=== PATIENT | female | born 1975 | race Caucasian/White ===

== ENCOUNTER → 2016-10-03 | Outpatient (CLI) | payer BC ==
--- NOTE | 2016-10-10 08:26 | MM ---
Reason for exam: screening (asymptomatic). Last mammogram was performed 16 years ago. History: Retro-pectoral saline implants in both breasts, 2006. Excisional biopsy of the right breast. Physical Findings: A clinical breast exam by your physician is recommended on an annual basis and results should be correlated with mammographic findings. MG 3D Screen Mammo Imp/Cad Bilateral CC, MLO, and ID view(s) were taken. Prior study comparison: October 02, 2000, bilateral diagnostic mammogram. August 16, 1999, bilateral special view mammogram. The breast tissue is heterogeneously dense. This may lower the sensitivity of mammography. Implant and neo views. Retropectoral saline implants are demonstrated. ASSESSMENT: Negative, BI-RAD 1 RECOMMENDATION: Routine screening mammogram of both breasts in 1 year.
== END | disposition home or self-care (01) ==
LOC: RADMAMWWP 07:01
PROVIDERS: ATTEND Obstetrics & Gynecology
DX: Z12.31 Encounter for screening mammogram for malignant neoplasm of breast (principal)
CPT/HCPCS: 77052; 77063; G0202

== ENCOUNTER → 2017-12-23 | Outpatient (CLI) | payer BC ==
--- NOTE | 2017-12-25 07:28 | MM ---
Reason for exam: screening (asymptomatic). Last mammogram was performed 1 year and 3 months ago. History: Family history of breast cancer in sister at age 50. Retro-pectoral saline implants in both breasts, 2006. Excisional biopsy of the right breast. Physical Findings: A clinical breast exam by your physician is recommended on an annual basis and results should be correlated with mammographic findings. MG 3D Screen Mammo Imp/Cad Bilateral CC and MLO view(s) were taken. Prior study comparison: October 03, 2016, bilateral MG 3d screen mammo imp/cad. October 02, 2000, bilateral diagnostic mammogram. The breast tissue is heterogeneously dense. This may lower the sensitivity of mammography. Retropectoal saline implants. No significant changes when compared with prior studies. ASSESSMENT: Negative, BI-RAD 1 RECOMMENDATION: Routine screening mammogram of both breasts in 1 year.
== END | disposition home or self-care (01) ==
LOC: RADMAMWWP 08:21
PROVIDERS: ATTEND Obstetrics & Gynecology
DX: Z12.31 Encounter for screening mammogram for malignant neoplasm of breast (principal)
CPT/HCPCS: 77063; 77067

== ENCOUNTER → 2019-02-10 | Outpatient (CLI) | payer BC ==
--- NOTE | 2019-02-11 10:39 | MM ---
Reason for exam: screening (asymptomatic). Last mammogram was performed 1 year and 2 months ago. History: Family history of breast cancer in sister at age 50. Retro-pectoral saline implants in both breasts, 2006. Excisional biopsy of the right breast. Took hormonal contraceptives for 6 months. Physical Findings: A clinical breast exam by your physician is recommended on an annual basis and results should be correlated with mammographic findings. MG 3D Screen Mammo Imp/Cad Bilateral CC and MLO view(s) were taken. Prior study comparison: December 23, 2017, bilateral MG 3d screen mammo imp/cad. October 03, 2016, bilateral MG 3d screen mammo imp/cad. There are scattered fibroglandular densities. No significant changes when compared with prior studies. ASSESSMENT: Benign, BI-RAD 2 RECOMMENDATION: Routine screening mammogram of both breasts in 1 year.
== END | disposition home or self-care (01) ==
LOC: RADMAMWWP 12:46
PROVIDERS: ATTEND Obstetrics & Gynecology
DX: Z53.9 Procedure and treatment not carried out, unspecified reason (principal)
CPT/HCPCS: 77063; 77067

== ENCOUNTER → 2020-11-22 | Outpatient (CLI) | payer BC ==
--- NOTE | 2020-11-26 09:47 | MM ---
Reason for exam: screening (asymptomatic). Last mammogram was performed 1 year and 9 months ago. History: Family history of breast cancer in sister at age 50. Retro-pectoral saline implants in both breasts, 2007. Excisional biopsy of the right breast. Took hormonal contraceptives for 6 months. Physical Findings: A clinical breast exam by your physician is recommended on an annual basis and results should be correlated with mammographic findings. MG 3D Screen Mammo Imp/Cad Bilateral CC, MLO, and ID view(s) were taken. Prior study comparison: February 10, 2019, bilateral MG 3d screen mammo imp/cad. December 23, 2017, bilateral MG 3d screen mammo imp/cad. There are scattered fibroglandular densities. Bilateral breast prothesis. No significant changes when compared with prior studies. ASSESSMENT: Benign, BI-RAD 2 RECOMMENDATION: Routine screening mammogram of both breasts.
== END | disposition home or self-care (01) ==
LOC: RADMAMWWP 12:22
PROVIDERS: ATTEND Obstetrics & Gynecology
DX: Z12.31 Encounter for screening mammogram for malignant neoplasm of breast (principal)
CPT/HCPCS: 77063; 77067

== ENCOUNTER → 2021-03-26 | Outpatient (CLI) | payer BC ==
[2021-03-26 15:04] LABS: Basophils % (A) 1 %; Eosinophils # (A) 0.2 k/uL (0-0.7); Eosinophils % (A) 4 %; HCT 39.5 % (34.0-46.0); HGB 13.3 gm/dL (11.4-16.0); Lymphocytes # (A) 1.4 k/uL (1.0-4.8); Lymphocytes % (A) 35 %; MCH 27.8 pg (25.0-35.0); MCHC 33.6 g/dL (31.0-37.0); MCV 82.7 fL (80.0-100.0); Mean Platelet Volume 6.7; Monocytes # (A) 0.3 k/uL (0-1.0); Monocytes % (A) 6 %; Neutrophils # (A) 2.2 k/uL (1.3-7.7); Neutrophils % (A) 53 %; Platelet Count 233 k/uL (150-450); RBC 4.78 m/uL (3.80-5.40); RDW 13.7 % (11.5-15.5); WBC 4.1 k/uL (3.8-10.6)
== END | disposition home or self-care (01) ==
LOC: LABPAT 14:49
PROVIDERS: ATTEND Obstetrics & Gynecology
DX: Z01.812 Encounter for preprocedural laboratory examination (principal)
CPT/HCPCS: 36415; 85025

== ENCOUNTER 2021-03-27 06:24 | Day surgery (SDC) | payer BC ==
[2021-03-25 14:27] VITALS: BMI 22.1
--- NOTE | 2021-03-26 12:49 | P.HPOB ---
History of Present Illness H&P Date: 03/26/21 Chief Complaint: Pelvic pain This is a 45 y.o. female, 3, para 2, who presents for diagnostic laparoscopy with possible ablation of endometriosis, possible lysis of adhesions, and possible drainage of ovarian cysts due to pelvic pain. For the past few months, she has been experiencing intermittent pelvic pressure and fullness and occasional sharp pain. This is worse when she lays on her stomach. She also has more bloating and constipation and more urinary frequency with occasional leakage. Pelvic ultrasound did show uterus measuring 8.7 x 6.7 x 4.4 cm with multiple fibroids, the largest measuring 2.8 cm in the left fundus. Ovaries were normal. OB Hx: . History of 2 vaginal deliveries and 1 miscarriage. [employer] Hx: No hx of STDs. History of tubal ligation and endometrial ablation in 2011. History of endometriosis in the past. Social Hx: . Works as RN at [employer]. Review of Systems Constitutional: Reports night sweats, Denies chills, Denies fever Eyes: denies blurred vision, denies pain Ears, nose, mouth and throat: Denies sore throat Cardiovascular: Denies chest pain, Denies shortness of breath Respiratory: Denies cough Gastrointestinal: Reports bloating, Reports constipation Genitourinary: Reports pelvic pain, Reports stress incontinence, Reports urinary frequency Menstruation: Reports amenorrhea Musculoskeletal: Reports low back pain Integumentary: Denies pruritus, Denies rash Neurological: Reports headaches (migraines), Denies numbness, Denies weakness Psychiatric: Reports anxiety, Reports difficulty concentrating, Denies depression Endocrine: Reports flushing Past Medical History Past Medical History: Skin Disorder Additional Past Medical History / Comment(s): eczema, migraines, fibroids, history of endometriosis History of Any Multi-Drug Resistant Organisms: None Reported Past Surgical History: Breast Surgery, Orthopedic Surgery, Tubal Ligation, Uterine Ablation Additional Past Surgical History / Comment(s): sinus surgery, breast augmentation, left knee arthroscopy, colonoscopy, laparoscopy-ablation of endometriosis with lysis of adhesions, multiple D&Cs, abdominoplasty Past Anesthesia/Blood Transfusion Reactions: No Reported Reaction Smoking Status: Never smoker Past Alcohol Use History: Occasional Past Drug Use History: None Reported - Past Family History Mother Family Medical History: No Reported History Father Family Medical History: Hypertension Sister(s) Family Medical History: Cancer (Breast) Medications and Allergies Home Medications Medication Instructions Recorded Confirmed Type SUMAtriptan succinate [Imitrex] 50 mg PO DIRECTED PRN 07/09/17 03/25/21 History Ascorbic Acid [Vitamin C] 1,000 mg PO DAILY 03/25/21 03/25/21 History Cetirizine HCl [Zyrtec] 5 mg PO DAILY PRN 03/25/21 03/25/21 History Cholecalciferol [Vitamin D3 (25 50 mcg PO DAILY 03/25/21 03/25/21 History Mcg = 1000 Iu)] Allergies Allergy/AdvReac Type Severity Reaction Status Date / Time prochlorperazine edisylate Allergy Severe Dystonia Verified 03/25/21 14:18 [From Compazine] metoclopramide [From Reglan] Allergy dystonia Verified 03/25/21 14:18 prochlorperazine maleate Allergy Dystonia Verified 03/25/21 14:18 [From Compazine] Exam Osteopathic Statement: *. No significant issues noted on an osteopathic structural exam other than those noted in the History and Physical/Consult. HEENT: within normal limits Heart: regular rate and rhythm Lungs: clear to auscultation bilaterally Abdomen: soft, non-tender Pelvic: uterus mid -position, with mild tenderness and fullness in left side, no right adnexal masses or tenderness Extremities: neg. Tyrone's Assessment and Plan (1) Pelvic pain Current Visit: No Status: Acute Code(s): R10.2 - PELVIC AND PERINEAL PAIN SNOMED Code(s): 93864381 Plan: Proceed with diagnostic laparoscopy, possible ablation of endometriosis, possib le lysis of adhesions, possible drainage of ovarian cyst, possible laparotomy. I have discussed the risks, benefits, and alternative therapies for the above- mentioned procedure and for both sedation/anesthesia as well as necessary blood products administration, if indicated, as they pertain to this patient. The patient has indicated her understanding and acceptance of the risks and procedures discussed.
[~2021-03-27 06:24] MED LIST: DEXAMETHASONE SOD PHOSPHATE 4 MG/ML 1 ML VIAL IV ONE; HYDROmorphone 0.5 MG/0.5 ML SYRINGE IVP PRN; LACTATED RINGERS 1,000 ML IV SCH; LIDOCAINE 1% (10MG/ML) FOR IV START INTRADERMA PRN; MIDAZOLAM 2 MG/2 ML VIAL IV PRN; ONDANSETRON 4 MG/2 ML VIAL IVP ONE; Pre Op ABX Message 1 EACH MISC MISCELLANE ONE
[2021-03-27] MEDS ORDERED: ROCURONIUM 10 MG/ML (5 ML VIAL) IV ONE (07:22)
[2021-03-27] MEDS ORDERED: fentaNYL (PF) 50 MCG/ML 2 ML AMP ONE (07:22)
[2021-03-27] MEDS ORDERED: LIDOCAINE 1% INJ 10MG/ML (20 ML MDV) ONE (07:22)
[2021-03-27] MEDS ORDERED: SUCCINYLCHOLINE CHLORIDE 100 MG/5 ML SYR IV ONE (07:22)
[2021-03-27] MEDS ORDERED: KETOROLAC 15 MG/ML 1 ML VIAL ONE (07:22)
[2021-03-27] MEDS ORDERED: NEOSTIGMINE 1 MG/ML 10 ML VIAL ONE (07:22)
[2021-03-27] MEDS ORDERED: GLYCOPYRROLATE 0.2 MG/ML 2 ML VIAL ONE (07:22)
[2021-03-27] MEDS ORDERED: PROPOFOL 10 MG/ML 20 ML VIAL IV ONE (07:22)
[2021-03-27] MEDS ORDERED: fentaNYL (PF) 50 MCG/ML 2 ML AMP IVP ONE (07:24)
[2021-03-27 07:33] VITALS: TEMP 97
[2021-03-27] MEDS ORDERED: BUPIVACAINE (PF) 0.25% 30 ML VIAL SQ ONE ×2 (07:52)
--- NOTE | 2021-03-27 08:08 | P.OP ---
Date of Procedure: 03/27/21 Preoperative Diagnosis: Pelvic pain History of endometriosis Postoperative Diagnosis: Pelvic pain History of endometriosis Procedure(s) Performed: Diagnostic laparoscopy Anesthesia: ALBA Surgeon: Karyn Ashby Estimated Blood Loss (ml): 10 Pathology: none sent Condition: stable Disposition: same day Indications for Procedure: This is a 45 y.o. female, 3, para 2, who presents for diagnostic laparoscopy with possible ablation of endometriosis, possible lysis of adhesions , and possible drainage of ovarian cysts due to pelvic pain. For the past few months, she has been experiencing intermittent pelvic pressure and fullness and occasional sharp pain. This is worse when she lays on her stomach. She also has more bloating and constipation and more urinary frequency with occasional leakage. Pelvic ultrasound did show uterus measuring 8.7 x 6.7 x 4.4 cm with multiple fibroids, the largest measuring 2.8 cm in the left fundus. Ovaries were normal. Operative Findings: Normal uterus tubes and ovaries are noted. No endometriosis is visualized. Evidence of previous tubal ligation is noted. Appendix is visualized and appears normal. Description of Procedure: The patient is taken to the operating room where she is placed in the dorsal lithotomy position. She was prepped and draped in the normal sterile fashion. Her bladder is drained with a catheter. Examination is performed under anesthesia. Uterus is found to be anteverted with no adnexal masses palpated. Next a weighted speculum was placed in the patient's vagina and a right angle retractor was used to visualize the anterior lip of the cervix. The anterior lip of the cervix is grasped with a single-tooth tenaculum and then a acorn uterine manipulator is inserted through the cervix and attached to the tenaculum. Speculum is removed from the vagina. Gloves are changed. Attention is then turned to the abdomen. A towel clip was placed above the umbilicus for retraction and a small stab incision was made in the infraumbilical fold with a scalpel. A 5 mm disposable bladeless trocar was then inserted into the peritoneal cavity under direct visualization. Once inside, pneumoperitoneum was achieved with CO2 gas. The insert was removed and camera was replaced. Next a small stab incision was made suprapubically and a 5 mm disposable bladeless trocar was inserted under direct visualization. A probe was inserted for manipulation. Pelvic contents were inspected. The above noted findings are made and pictures are taken. No specific abnormalities were visualized. Next the suprapubic trocar was removed under direct visualization. No active bleeding was noted. Pneumoperitoneum was released. The upper trocar is then removed. Incision sites are then sutured with 4-0 Vicryl suture in a subcuticular fashion. One interrupted stitch was placed on the suprapubic incision for hemostasis. The incision sites were injected with quarter percent Marcaine. Approximately 4 cc were used. All instruments are removed from the vagina. No active bleeding was noted. All sponge and needle counts are correct. The patient is taken to recovery room in stable condition.
[2021-03-27 08:38] VITALS: RESP 16
[2021-03-27 09:28] VITALS: BP 126/81; PULSE 57
== END 2021-03-27 09:50 | disposition home or self-care (01) ==
LOC: OR 06:24
PROVIDERS: ATTEND Obstetrics & Gynecology
DX: Z98.51 Tubal ligation status (principal); L30.9 Dermatitis, unspecified; D21.9 Benign neoplasm of connective and other soft tissue, unspecified; Z87.42 Personal history of other diseases of the female genital tract; Z98.890 Other specified postprocedural states; Z82.49 Family history of ischemic heart disease and other diseases of the circulatory system; Z80.3 Family history of malignant neoplasm of breast; Z79.899 Other long term (current) drug therapy; Z88.8 Allergy status to other drugs, medicaments and biological substances
CPT/HCPCS: 81025; 49320; J2250; J1100; J2710; J2405; J2001; J3010; J1885; J0330; J2704

== ENCOUNTER → 2021-07-17 | Outpatient (CLI) | payer BC ==
[2021-07-17 11:31] LABS: Basophils % (A) 0.4 %; Eosinophils % (A) 6.8 %; HCT 44.7 % (37.2-46.3); HGB 14.4 g/dL (12.0-15.0); Lymphocytes # (A) 1.16 X 10*3/uL (0.90-5.00); Lymphocytes % (A) 24.1 %; MCH 28.3 pg (27.0-32.0); MCHC 32.2 g/dL (32.0-37.0); MCV 87.8 fL (80.0-97.0); Mean Platelet Volume 9.8 fL (9.5-12.2); Monocytes % (A) 8.5 %; Neutrophils # (A) 2.88 X 10*3/uL (1.80-7.70); Neutrophils % (A) 59.8 %; Platelet Count 241 X 10*3/uL (140-440); RBC 5.09 X 10*6/uL (4.10-5.20); RDW 12.8 % (11.5-14.5); WBC 4.82 X 10*3/uL (4.50-10.00)
[2021-07-17 11:32] LABS: Basophils # (A) 0.02 X 10*3/uL (0.00-0.10); Eosinophils # (A) 0.33 X 10*3/uL (0.04-0.35); Monocytes # (A) 0.41 X 10*3/uL (0.20-1.00)
[2021-07-17 16:27] LABS: Albumin 4.6 g/dL (3.8-4.9); Albumin/Globulin Ratio 2.56 (1.60-3.17); Anion Gap 14.8 mmol/L (4.00-12.00); BUN/Creat Ratio 18.88 Ratio (12.00-20.00); Blood Urea Nitrogen 15.1 mg/dL (9.0-27.0); Calcium 9.2 mg/dL (8.7-10.3); Carbon Dioxide 19.2 mmol/L (21.6-31.8); Chol/HDL Ratio 3.16 Ratio; Follicle Stimulating Hormone 37.2 mIU/mL; Globulin 1.8 g/dL (1.6-3.3); HDL Cholesterol 53.8 mg/dL (40.00-60.00); LDL Cholesterol,Calculated 102.3 mg/dL (0.0-131.0); Luteinizing Hormone 19.7 mIU/mL; Non-African American GFR(CKD) 87.2 (60.0-200.0); Potassium 4.4 mmol/L (3.5-5.5); Total Bilirubin 0.5 mg/dL (0.30-1.20); Total Protein 6.4 g/dL (6.2-8.2); Triglycerides 69.5 mg/dL (0.00-149.00); VLDL Calculation 13.9 mg/dL (5.00-40.00)
== END | disposition home or self-care (01) ==
LOC: LABWHC1 07:04
PROVIDERS: ATTEND Family Medicine
DX: Z00.00 Encounter for general adult medical examination without abnormal findings (principal); R63.5 Abnormal weight gain
CPT/HCPCS: 36415; 80053; 80061; 83001; 83002; 83036; 83525; 84443; 85025

== ENCOUNTER → 2022-02-27 | Outpatient (CLI) | payer BC ==
[2022-02-27 14:30] LABS: HCT 44.5 % (37.2-46.3); HGB 14.2 g/dL (12.0-15.0); MCH 27.4 pg (27.0-32.0); MCHC 31.9 g/dL (32.0-37.0); MCV 85.7 fL (80.0-97.0); Mean Platelet Volume 9.9 fL (9.5-12.2); NRBC Per 100 WBC 0 /100 WBCS (0.0-0.0); Platelet Count 291 X 10*3/uL (140-440); RBC 5.19 X 10*6/uL (4.10-5.20); RDW 13.2 % (11.5-14.5)
[2022-02-27 15:00] LABS: Estradiol 13.6 pg/mL
[2022-02-27 15:05] LABS: Progesterone 0.1 ng/mL
[2022-02-27 16:56] LABS: ALT 26 U/L (8-44); AST 24 U/L (13-35); African American GFR (CKD) 115.9 (60.0-200.0); Albumin 4.5 g/dL (3.8-4.9); Albumin/Globulin Ratio 1.84 (1.60-3.17); Alkaline Phosphatase 96 U/L (41-126); BUN/Creat Ratio 13.45 Ratio (12.00-20.00); Blood Urea Nitrogen 9.6 mg/dL (9.0-27.0); Carbon Dioxide 26.1 mmol/L (20.0-27.5); Chloride 105 mmol/L (96-109); Globulin 2.4 g/dL (1.6-3.3); Glucose 80 mg/dL (70-110); LDL Cholesterol,Calculated 107.9 mg/dL (0.0-131.0); Potassium 4.5 mmol/L (3.5-5.5); Sodium 140 mmol/L (135-145); Total Protein 6.9 g/dL (6.2-8.2)
== END | disposition home or self-care (01) ==
LOC: LABWHC1 08:42
PROVIDERS: ATTEND Obstetrics & Gynecology
DX: N95.2 Postmenopausal atrophic vaginitis (principal); N95.1 Menopausal and female climacteric states; G47.09 Other insomnia
CPT/HCPCS: 36415; 80053; 80061; 82670; 83001; 84144; 84403; 84443; 84481; 85027; 86376

== ENCOUNTER → 2024-04-26 | Outpatient (CLI) | payer BC ==
--- NOTE | 2024-04-26 08:41 | MM ---
Reason for Exam: Screening (asymptomatic). Last mammogram was performed 3 year(s) and 5 month(s) ago. Patient History: Menarche at age 10. First Full-Term at age 18. Hormonal Contraceptives for 6 months. Excisional Biopsy on the Right side. 2006, Bilateral Implants. Sister had breast cancer, age 50. Risk Values: Elyse 5 year model risk: 2.2%. NCI Lifetime model risk: 19.1%. Prior Study Comparison: 12/23/2017 Bilateral Screening Mammogram, [facility]. 02/10/2019 Bilateral Screening Mammogram, [facility]. 11/22/2020 Bilateral Screening Mammogram, [facility]. Tissue Density: The breasts are heterogeneously dense, which may obscure small masses. Findings: Analyzed By CAD. There is no suspicious group of microcalcifications or new suspicious mass in either breast. Bilateral implants are intact. Overall Assessment: Negative, BI-RAD 1 Management: Screening Mammogram of both breasts in 1 year. . Patient should continue monthly self-breast exams. A clinical breast exam by your physician is recommended on an annual basis. This exam should not preclude additional follow-up of suspicious palpable abnormalities. Note on Elyse scores and lifetime risk: 1. A Elyse score greater than 3% is considered moderate risk. If this is the case, consider specialist referral to assess eligibility for a risk reducing agent. 2. If overall lifetime risk for the development of breast cancer is 20% or higher, the patient may qualify for future screening with alternating mammogram and breast MRI. Electronically signed and approved by: Jan Piper M.D. Radiologis
== END | disposition home or self-care (01) ==
LOC: RADMAMWWP 06:49
PROVIDERS: ATTEND Obstetrics & Gynecology
DX: Z12.31 Encounter for screening mammogram for malignant neoplasm of breast (principal); R92.333 Mammographic heterogeneous density, bilateral breasts; Z80.3 Family history of malignant neoplasm of breast
CPT/HCPCS: 77067